=== PATIENT | male | born 1995 | race Two or more races ===

== ENCOUNTER 2021-08-09 02:54 | Emergency (ER) | payer MEDICAID ==
[~2021-08-09] VITALS: Ht 121.9 cm; Wt 31.8 kg
[2021-08-09] MEDS ORDERED: EPINEPHrine HCL 1 MG/10 ML SYRG IV ONE (12:21)
== END 2021-08-09 03:00 ==
LOC: EDBD 02:54 → EDUNIT# 02:54 → ER 02:59
DX: I46.9 Cardiac arrest, cause unspecified (principal); G71.00 Muscular dystrophy, unspecified
CPT/HCPCS: 92950; 99285; J0171

== ENCOUNTER → 2021-08-09 | Emergency (ER) | payer MEDICAID | END | disposition left against medical advice (07) | LOC: ER 02:53 | DX: I46.9 Cardiac arrest, cause unspecified (principal); Z53.21 Procedure and treatment not carried out due to patient leaving prior to being seen by health care provider ==